=== PATIENT | female | born 1935 | race Hispanic/Latino ===

== ENCOUNTER 2017-02-12 05:05 | Inpatient (IN) | payer MEDICARE, OTHER ==
[2017-02-12 05:27] LABS: #Basophils 0.1 thou/uL (0.0-0.2); #Eosinphils 0.1 thou/uL (0.0-0.7); #Lymphocytes 2.2 thou/uL (1.20-3.40); #Monocytes 0.4 thou/uL (0.11-0.59); #Neutrophils 3.4 thou/uL (1.40-6.50); %Basophils 1.3 % (0.0-1.0); %Lymphocytes 35.4 % (21.0-51.0); %Monocytes 7.1 % (0.0-10.0); Hematocrit 39.2 % (36.0-47.0); Mean Platelet Volume 9.1 fL (7.4-10.4); Red Blood Cell (RBC) Count 3.87 mill/uL (4.20-5.40); White Blood Cell (WBC) Count 6.2 thou/uL (4.8-10.8)
[2017-02-12 05:36] LABS: PTT 31.8 SEC (22.9-36.1); Prothrombin Time 14.1 SEC (12.0-14.7)
[2017-02-12 05:47] LABS: ALT (SGPT) 20 U/L (8-55); AST (SGOT) 30 U/L (5-34); Alkaline Phosphatase 148 U/L (40-150); Anion Gap 10 mmol/L (10-20); BUN (Urea Nitrogen) 12 mg/dL (9.8-20.1); Calc. Creatinine Clearance 0 mL/min (70-130); Calcium 8.4 mg/dL (7.8-10.44); Carbon Dioxide 26 mmol/L (23-31); Chloride 106 mmol/L (98-107); Estimated GFR-MDRD 77; Globulin 3.1 g/dL (2.4-3.5); Protein, Total 6.2 g/dL (6.0-8.3)
[2017-02-12 05:49] LABS: Troponin I 0.048 ng/mL (< 0.028)
[2017-02-12] MEDS ORDERED: Fentanyl 100 MCG/2 ML VIAL ONE (06:40)
[2017-02-12] MEDS ORDERED: Heparin 1000 UNIT/NS 500ML(OR) 1,000 ML ONE (07:00)
[2017-02-12] MEDS ORDERED: Heparin 10,000 UNITS/1 ML VIAL ONE (07:01)
[2017-02-12] MEDS ORDERED: Phenylephrine 10 MG/NS 250 ML 0 ML ONE (07:14)
[2017-02-12] MEDS ORDERED: SUGAMMADEX SODIUM 500 MG/5 ML VIAL ONE (08:36)
--- NOTE | 2017-02-12 09:20 | CT ---
PRELIMINARY REPORT/[facility]/EMERGENCY AFTER HOURS PROCEDURE: EXAM: CT Angiography Head With Intravenous Contrast CLINICAL HISTORY: 81 years old, female; Signs and symptoms; Weakness; Patient HX: Stroke alert. . . . Last seen normal 0300, right sided facial droop and weakness, pt is not responding. Unable to obtain further history TECHNIQUE: Axial computed tomographic angiography images of the head with intravenous contrast using CT angiogra phy protocol. Coronal and sagittal reformatted images were created and reviewed. CONTRAST: 95 mL of isovue 370 administered intravenously. COMPARISON: No relevant prior studies available. FINDINGS: Right internal carotid artery: No significant stenosis. No dissection or occlusion. Right anterior cerebral artery: No occlusion or significant stenosis. No aneurysm. Right middle cerebral artery: No occlusion or significant stenosis. No aneurysm. Right posterior cerebral artery: No occlusion or significant stenosis. No aneurysm. Right vertebral artery: No significant stenosis. No dissection or occlusion. Left internal carotid artery: No significant stenosis. No dissection or occlusion. Left anterior cerebral artery: No occlusion or significant stenosis. No aneurysm. Left middle cerebral artery: Occlusion of the distal left M1 segment with filling defect suggestive o f clot. Occlusion of a posterior M3 branch in the sylvian fissure with distal constitution and overal l diminished opacification of distal left MCA branches compared to the contralateral side. Left posterior cerebral artery: No occlusion or significant stenosis. No aneurysm. Left vertebral artery: No significant stenosis. No dissection or occlusion. Basilar artery: No occlusion or significant stenosis. No aneurysm. Brain: Diminished enhancement along the left insula and posterior frontal and anterior parietal regio ns. IMPRESSION: Occlusion of the left M1 segment distally with diminished enhancement in the MCA distribution as abov e. EXAM: CT Angiography Neck With Intravenous Contrast CLINICAL HISTORY: 81 years old, female; Signs and symptoms; Weakness; Patient HX: Stroke alert. . . . Last seen normal 0300, right sided facial droop and weakness, pt is not responding. Unable to obtain further history TECHNIQUE: Axial computed tomographic angiography images of the neck with intravenous contrast using CT angiogra phy protocol. MIP reconstructed images were created and reviewed. CONTRAST: 95 mL of isovue 370 administered intravenously. COMPARISON: CT Brain WO Con 2017-02-12 05:09 FINDINGS: VASCULATURE: Right common carotid artery: No significant stenosis. No dissection or occlusion. Right internal carotid artery: Mild plaque at the right carotid bulb and proximal internal carotid ar tanmay without significant stenosis. Right external carotid artery: Unremarkable. No occlusion. Right vertebral artery: No significant stenosis. No dissection or occlusion. Left common carotid artery: No significant stenosis. No dissection or occlusion. Left internal carotid artery: Mild partially calcified atherosclerotic plaque at the left carotid bul b and proximal internal carotid artery without significant stenosis. Left external carotid artery: Unremarkable. No occlusion. Left vertebral artery: Left vertebral artery arising from aorta. Otherwise unremarkable. NECK: Bones/joints: No acute fracture. No dislocation. Soft tissues: Unremarkable. Lung apices: Moderate bilateral pleural effusions. Mild interlobular septal thickening. IMPRESSION: No acute findings. THIS REPORT CONTAINS FINDINGS THAT MAY BE CRITICAL TO PATIENT CARE. The findings were verbally commun icated via telephone conference with Avinash Blanco at 5:49 AM DISTRICT LOSS PREVENTION MANAGER on 02/12/2017. The findings were acknowledged and understood. Thank you for allowing us to participate in the care of your patient. Dictated and Authenticated by: Benny Lee MD 02/12/2017 5:50 AM Central Time ([place]) FINAL REPORT CT ANGIOGRAM OF THE NECK WITH CONTRAST CT ANGIOGRAM OF THE HEAD WITH CONTRAST: DATE: 02/12/17. HISTORY: An 81-year-old female with acute stroke: right-sided facial droop and weakness. Unresponsive. Dr. Powers reported the left MCA clot by telephone to Dr. Chalino Torres of neuro-interventional/neurosurger y, at 8:54 a.m. on 02/12/17. Dr. Powers also notified Juliane Alcaraz of the CCU of the same finding at les s than 1 minute before that. TECHNIQUE: IV contrast bolus injection. Arterial phase scan performed from aortopulmonic window through vertex of head. Coronal and sagittal 3D MIP reconstructions. FINDINGS: There is abrupt truncation and occlusion at the M2 segment of the left middle cerebral artery. There are fewer peripheral branches of left middle cerebral artery compared to the right. There is heavil y calcified atherosclerotic plaque throughout the bilateral parotid siphons, more specifically the ca vernous carotids, and the degree of stenoses there is difficult to assess. There is probably at leas t moderate, and possibly severe stenosis there bilaterally. No evidence of high-grade stenosis or occlusion in the rest of the anterior circulation of [place], or the posterior circulation. Bilateral cervical vertebral arteries are codominant. The lef t vertebral artery arises from the aortic arch, which is an anatomical variant. No high-grade stenos is identified involving the bilateral vertebral arteries, common carotid arteries, cervical internal carotid arteries, brachiocephalic artery, or right subclavian artery. Proximal left subclavian arter y is not stenotic. Mid portion is obscured by beam-hardening artifact from adjacent dense contrast b olus in the left subclavian vein. There are bilateral pleural effusions that reach the apices. No a neurysm or dissection of aortic arch. Agree with [facility] preliminary report IMPRESSION: 1. Occlusion at M2 segment of left middle cerebral artery. 2. Heavily calcified plaque in the bilateral carotid siphons (more specifically in the cavernous car otids). The degree of stenosis there is uncertain. 3. Bilateral pleural effusions. CODE QA POS: [facility]
--- NOTE | 2017-02-12 09:21 | PRG ---
DATE OF SERVICE: 02/12/2017 Ms. Henry is an 81-year-old female that was reportedly in her normal state of health at 3:30 this morning. A couple of hours later close to 5:30, she was found to have neglecting hemiparesis as well as dysarthria. She was brought to the [facility] where she underwent a noncontrast head CT which was negative for hemorrhage. She subsequently had a CT angiogram of the head and neck which reveale d a distal M1 clot on the left side with a filling defect. She is on antiplatelets and therefore not a good TPA candidate. I did feel upon review of her images that she may benefit from mechanical thr ombectomy and have activated teams to begin the process. She at the time of my arrival had no family present. We will move forward as this is an emergency.
[2017-02-12] MEDS: Sodium Chloride 0.9% 1,000 ML IV SCH ×2 (09:31→15:11)
--- NOTE | 2017-02-12 09:38 | CCL ---
ATTEMPTED ANGIOGRAM AND ATTEMPTED MECHANICAL THROMBECTOMY: DATE: 02/12/17. SURGEON: Dr. Torres. BRASS CLEANER: None. INDICATION: Ischemic stroke with thrombus. ANESTHESIA: General. PROCEDURE IN DETAIL: The patient was brought to the angiogram suite and placed on the table in a supine position. She was placed under general anesthesia. Both groins were prepped and draped in the usual sterile fashion. 1% lidocaine was used to inject the right groin. A 5 [place] micropuncture set was used to gain acce ss to right common femoral artery. Using the Seldinger technique, that was exchanged for an 8 [place] sheath. An 8 [place] concentric guide catheter was passed initially over a 130 cm diagnostic cathete r which was initially passed over a [employer] wire. The wire was placed within the left common carotid artery. There is a very sharp kink at the takeoff and I could not get a diagnostic catheter or a gu chelsey into the common carotid artery. We then exchanged the diagnostic catheter for a Isaac II dieudonne ter which was formed and placed within the left common carotid artery. We then exchanged over an exc hange length wire the guide catheter which again would not pass into the left common carotid artery. We then used several different wires and diagnostic catheters in an attempt to get into the left com mon carotid artery, but were unsuccessful in accessing that artery secondary to extreme tortuosity. All catheters were then removed. Hemostasis was maintained in manual compression. The procedure cam e to an end without complication. POS: [facility]
[2017-02-12] MEDS: Aspirin 325 mg Enteric Coated Tablet PO SCH ×2 (09:54→09:57)
--- NOTE | 2017-02-12 10:09 | CT ---
PRELIMINARY REPORT/[facility]/EMERGENCY AFTER HOURS PROCEDURE: Addendum created by Benny Lee MD on 02/12/2017 5:35 AM Central Time ([place]) Some questionabl e hypoattenuation noted in the left posterior frontal region. The findings were verbally communicated via telephone conference with Avinash Blanco at 5:34 AM MOUNTAIN GUIDE on 02/12/2017. Initial Report created on 02/12/2017 5:23 AM Central Time ([place]) EXAM: CT Head Without Intravenous Contrast CLINICAL HISTORY: 81 years old, female; Signs and symptoms; Weakness, extremity and weakness, facial; Right; Patient HX : Stroke alert. . . . Last seen normal 0300, right sided facial droop and weakness, pt is not respond ing. Unable to obtain further history TECHNIQUE: Axial computed tomography images of the head/brain without intravenous contrast. COMPARISON: No relevant prior studies available. FINDINGS: Brain: Atrophy and [id number] periventricular-deep white matter hypodensities compatible with c hronic microvascular ischemic change. Small area of left parietal hypodensity with volume loss sugges tive of remote ischemic event. Similar appearing hypodensity in the medial right occipital lobe. No hemorrhage. Ventricles: Normal. Bones/joints: Unremarkable. No acute fracture. Soft tissues: Normal. Sinuses: Unremarkable. Mastoid air cells: Unremarkable. No mastoid effusion. IMPRESSION: No evidence of hemorrhage or definite acute findings. Thank you for allowing us to participate in the care of your patient. Dictated and Authenticated by: Benny Lee MD 02/12/2017 5:23 AM Central Time ([place]) FINAL REPORT EMERGENT AFTER HOURS CT OF BRAIN PERFORMED WITHOUT CONTRAST ENHANCEMENT: HISTORY: Stroke symptoms with right-sided facial droop and weakness. COMPARISON: A 11/13/13 study. FINDINGS: There is generalized ventricular and sulcal prominence. There is decreased attenuation to the perive ntricular white matter consistent with some chronic white matter change. There is some encephalomala vika change involving the left parietal region and right occipital lobe. These changes do not appear acute. No hemorrhage or mass effect. IMPRESSION: 1. No acute intracranial abnormalities. 2. This report is in agreement with the temporary report issued by [facility]. POS: [facility]
[2017-02-12] MEDS ORDERED: Aspirin 300 MG Suppository PR SCH (12:00)
[2017-02-12] MEDS ORDERED: ISOVUE-370 76%-LOCM 1 ML ONE (13:35)
[2017-02-12] MEDS ORDERED: Glycopyrrolate 0.2 MG/ML 5 ML SYRINGE ONE (15:35)
[2017-02-12] MEDS ORDERED: Propofol 200 MG/20 ML VIAL ONE (15:35)
[2017-02-12] MEDS ORDERED: Iopamidol 370 76% 100 ML VIAL ONE (15:35)
--- NOTE | 2017-02-12 22:00 | CON ---
DATE OF CONSULTATION: 02/12/2017 REASON FOR CONSULTATION: Medical management of the patient with acute CVA who has diabetes and other medical problems. HISTORY OF PRESENT ILLNESS: The patient is an 81-year-old female who lives at the [facility] in [place] who developed acute CVA in left middle cerebral artery distribution. She was emerge ntly taken to the clinical lab technologist by Dr. Torres who tried to revascularize the place where the clot was found on CT angiogram which was M2 segment of the left middle cerebral artery and this was unsuccessful at tempt and the patient was admitted to the hospital for further medical management since mechanically he was not able to manage the problem and some Physician Hospitalist group was consulted to manage he r medical problems. PAST MEDICAL HISTORY: Positive for: 1. Coronary artery disease of [place] coronary arteries of [place] heart. 2. Hypertensive heart disease without heart failure. 3. Dyslipidemia. 4. Chronic kidney disease stage II. 5. Age-related osteoporosis. 6. Generalized muscle weakness. 7. Diabetes mellitus type 2. 8. Hypothyroidism. 9. Neuropathy. 10. Only one kidney. PAST SURGICAL HISTORY: 1. Appendectomy. 2. Hysterectomy. 3. Spinal surgery. SOCIAL HISTORY: She lives at [facility]. She is an ex-tobacco user. She quit 10 years ago. She denies any alcohol intake or use any illicit drugs. FAMILY HISTORY: Not obtainable. REVIEW OF SYSTEMS: Unobtainable because of patient's mental status, she is in deep, and difficult to arouse. CURRENT MEDICATIONS: Alprazolam 0.25 mg 3 times a day, aspirin 81 mg once a day, Biotin 2500 mcg onc e a day, calcium carbonate with vitamin D3 one tablet daily, carvedilol 12.5 mg unknown frequency, ch olecalciferol 1000 units once a day, clopidogrel 75 mg once a day, cranberry capsule 400 mg daily, vi tamin B12 of 1000 mcg daily, docusate 240 mg twice a day, gabapentin 100 mg twice a day, glimepiride 4 mg every morning, Humalog for sliding scale, hydrocodone by titrate/acetaminophen 5/325 mg 1 tablet daily, insulin NPH 18 units subcutaneously at bedtime and 28 units of a.c., lisinopril 5 mg daily, l ovastatin 10 mg at bedtime, metformin 500 mg every morning, pravastatin 20 mg at bedtime, ropinirole 0.25 mg q.p.m., tramadol 50 mg tablets, unknown frequency. PHYSICAL EXAMINATION: VITAL SIGNS: Her blood pressure is 153/75, pulse is 77, respirations 19, pulse oximetry 97% on room air. HEENT: Her head is atraumatic, normocephalic. She is in a coma, but she is arousable with some stim charles. Her eyes are deviated to the left. Pupils about 3 mm wide, similar bilaterally. Sclerae nonic teric. Conjunctivae pinkish. Oral mucosa is somewhat dry. NECK: Supple. LUNGS: A few crackles at both bases. Heart and diminished breath sounds at both bases. HEART: S1, S2 normal. No S3, no S4, no any murmur. ABDOMEN: Soft, nontender, nondistended, bowel sounds are present, no organomegaly. EXTREMITIES: No clubbing, cyanosis or edema. NEUROLOGIC: She tries to follow, but fall short very quickly. She has some facial droop on the righ t side and right-sided hemiplegia which is 4/5. Babinski sign is not positive on both sides. SKIN: No rash or erythema. LABORATORY AND X-RAY FINDINGS: White count of 6.2, hemoglobin 12.6, hematocrit 39.2, platelet count is 185,000, MCV is 101. Coagulation is INR of 1.1, PT 14.1, PTT 31.8. Chemistry: Normal electrolytes, glucose 75, troponin I 0.048. CK-MB 3.8, creatinine kinase 81, gluc ose 101, albumin 3.1. IMAGES: CT of the brain personally reviewed by me showed no acute intracranial abnormalities. There is some encephalomalacia in the left parietal region and the right occipital lobe and some decreased attenuation to the periventricular white matter consistent with some chronic white matter changes. LABORATORY DATA: CT angiography showed on neck no acute findings and the [place] angiograph y which showed abrupt truncation and occlusion at the M2 segment of the left middle cerebral artery. Also, there is a heavily calcified atherosclerotic plaque throughout the bilateral carotid siphons m ore specifically the cavernous carotids, no evidence of high grade stenosis or occlusion in the rest of the anterior circulation of [place] or the posterior circulation. IMPRESSION: 1. Acute cerebrovascular attack in the left middle cerebral artery distribution, status post unsucce ssful mechanical revascularization. 2. Hypertension. 3. Diabetes mellitus type 2. 4. Coronary artery disease, chronic, stable. 5. Hypothyroidism. 6. Neuropathy. 7. Only one kidney from the time of . PLAN: Agree with the current management. The patient received aspirin 325 mg rectally. She was on clopidogrel prior to this hospitalization. The case was discussed with Dr. Torres who recommends to u se either aspirin or clopidogrel, not both of them. Since she was very comatose and she failed the s wallow studies, we will keep her on the rectal aspirin for now and if she wakes up tomorrow and she i s able to swallow, we will switch her to clopidogrel 75 mg daily, and continue. For now, she is gett ing IV normal saline at 100 mL per hour for IV hydration. We are going to do Accu-Cheks a.c. and at bedtime and cover with just a mild sliding scale. We are not going to introduce her on long-acting i nsulin here because her glycemia is ranging in normal levels. Also, she is on the statin at the nurs ing home, I would like to switch her to stronger statin since she is on, I believe, pravastatin, and we will have to put her on most likely a statin. Tomorrow, she will have revaluation by the sp eech therapy and we are going to send her to stroke unit today and we are going to keep her on SCDs f or deep venous thrombosis prophylaxis. She will be on Pepcid 20 mg IV push q.12 h. for PUD prophylax is and I am going to hold all her senior care medications for now and will make decision about the n ext step tomorrow if she wakes up and able to swallow anything orally without any harm. Thank you very much for the consultation, we will follow with you.
[2017-02-13] MEDS: Sodium Chloride 0.9% 1,000 ML IV SCH ×2 (09:53→20:25)
[2017-02-13] MEDS: Aspirin 300 MG Suppository PR SCH (09:53)
[2017-02-13] MEDS ORDERED: Dextrose 5% in Water 1,000 ML IV PRN (13:21)
[2017-02-13] MEDS ORDERED: Dextrose 50% Abboject 50 ML SYRINGE SLOW IVP PRN (13:21)
--- NOTE | 2017-02-13 14:23 | PRG ---
DATE OF SERVICE: 02/13/2017 SUBJECTIVE: The patient is seen and examined at bedside and there is the patient's daughter at the [facility] too. She has multiple questions and all questions have answered to her satisfaction. OBJECTIVE: VITAL SIGNS: Blood pressure is 147/65, pulse is 83, temperature is 98.6, respiratory rate is 18, O2 saturation is 96% on room air. GENERAL: She does not follow me. Although, when she was asked to open her mouth, she did, but that is all she followed. She has significant congestion in her throat, but she seems to be holding her s ecretions pretty good. She is not able to talk. She does make some noises, but she is much more lata ke today than yesterday. Yesterday, she was very comatose. Today, she is sitting up and able to loo k around. HEENT: Head is atraumatic, normocephalic. Pupils responding to light properly. NECK: Supple. LUNGS: Clear. HEART: S1, S2 normal, no S3, no S4. ABDOMEN: Soft, nontender. Bowel sounds are present. No organomegaly. EXTREMITIES: No clubbing, cyanosis or edema. NEUROLOGIC: As mentioned above, she is aphasic. There is significant amount of apraxia. Her motor function, which is mild right-sided weakness in the right upper extremity and some in the right lower extremity. SKIN: No rash or erythema. LABORATORY DATA: Showed glycemia ranges from 73-231. IMPRESSION: 1. Acute cerebrovascular in the left middle cerebral artery distribution, status post unsuccessful m echanical revascularization. 2. Hypertension. 3. Diabetes mellitus type 2. 4. Coronary artery disease, chronic, stable. 5. Hypothyroidism. 6. Neuropathy. 7. Only one kidney from the time of . PLAN: She failed swallow studies by speech therapist. She is getting 325 mg of aspirin rectally. I was hoping that we can give her clopidogrel and switch her to clopidogrel today, but her swallowing is not improved much since yesterday. Since she improved significantly, we are hoping that tomorrow evaluation of her swallowing will be a good and it will let me to start her on some food and some ora l medications. We are going to continue IV fluids and we will continue PT, OT, and speech therapy an d further recommendation will depend on her improvement.
[2017-02-13] MEDS: Insulin Regular 300 UNITS/3 ML VIAL SC PRN (17:32)
[2017-02-14 07:09] LABS: #Lymphocytes 1.3 thou/uL (1.20-3.40); #Monocytes 0.5 thou/uL (0.11-0.59); #Neutrophils 6.6 thou/uL (1.40-6.50); %Basophils 0.2 % (0.0-1.0); %Eosinophils 0.2 % (0.0-10.0); %Lymphocytes 15.3 % (21.0-51.0); %Monocytes 5.7 % (0.0-10.0); Hematocrit 38.1 % (36.0-47.0); Mean Platelet Volume 9.2 fL (7.4-10.4); Red Blood Cell (RBC) Count 3.79 mill/uL (4.20-5.40); White Blood Cell (WBC) Count 8.4 thou/uL (4.8-10.8)
[2017-02-14 07:23] LABS: Calcium 8.3 mg/dL (7.8-10.44); Chloride 111 mmol/L (98-107)
[2017-02-14 07:31] LABS: BUN (Urea Nitrogen) 30 mg/dL (9.8-20.1); Calc. Creatinine Clearance 45 mL/min (70-130); Carbon Dioxide 17 mmol/L (23-31); Estimated GFR-MDRD 56
[2017-02-14 07:36] LABS: Anion Gap 16 mmol/L (10-20)
--- NOTE | 2017-02-14 08:21 | ULT ---
CAROTID ARTERIAL DOPPLER ULTRASOUND: DATE: 02/14/17 COMPARISON: None. HISTORY: CVA. TECHNIQUE: Multiplanar Reynaga scale sonographic imaging of the arterial structures of the neck obtained with color flow and spectral analysis. FINDINGS: Antegrade blood flow and normal arterial waveforms are documented within the carotid and vertebral sy stem bilaterally. VESSEL PSV (cm/sec) EDV (cm/sec) Right CCA 73 10 Right ICA 74 9 Right ECA 73 6 Left CCA 67 12 Left ICA 51 10 Left ECA 71 4 ICA/CCA ratio is 1.0 on the right and 0.8 on the left. IMPRESSION: No hemodynamically significant stenosis on the basis of sonographic velocity criteria. Check tech note. POS: [facility]
[2017-02-14] MEDS: Sodium Chloride 0.9% 1,000 ML IV SCH ×2 (09:21→21:11)
[2017-02-14] MEDS: Aspirin 300 MG Suppository PR SCH (09:22)
--- NOTE | 2017-02-14 11:18 | PDOC.PN ---
- Subjective Encounter Start Date: 02/14/17 Encounter Start Time: 11:00 Subjective: f/u L MCA distribution CVA with R hemiparesis, aphasia and dysphagia. -: Still unable to take po and awaiting BMET evaluation today. Receiving -: ASA 300mg WI. - Objective MAR Reviewed: Yes Vital Signs & Weight: Vital Signs (12 hours) Temp Pulse Resp BP Pulse Ox 02/14/17 07:56 98.9 F 89 20 176/84 H 94 L 02/14/17 04:00 98.3 F 89 16 140/76 96 02/14/17 01:06 98.6 F 85 18 173/77 H 97 Weight Admit Weight 215 lb 2.738 oz Weight 135 lb 6.4 oz Most Recent Monitor Data Heart Rate from ECG 90 NIBP 157/72 NIBP BP-Mean 97 Respiration from ECG 16 SpO2 99 I&O: 02/13/17 02/14/17 02/15/17 06:59 06:59 06:59 Intake Total 634 1688 Output Total 1290 450 Balance -656 1238 Result Diagrams: 02/14/17 07:01 02/14/17 07:01 Additional Labs: Accuchecks 02/14/17 02/14/17 02/13/17 10:39 06:02 21:52 POC Glucose 310 H 268 H 281 H 02/13/17 02/13/17 17:01 11:48 POC Glucose 273 H 231 H Radiology Reviewed by me: Yes (CT brain - no acute process) EKG Reviewed by me: Yes (Tele - SR) Phys Exam - Physical Examination Constitutional: NAD sleeping, arouses to name briefly HEENT: PERRLA, oral pharynx no lesions Neck: no JVD, supple Respiratory: no wheezing, clear to auscultation bilateral Cardiovascular: RRR Gastrointestinal: soft, non-tender, no distention, positive bowel sounds Musculoskeletal: no edema, pulses present R hemiparesis, dysphagia, expressive aphasia Skin: normal turgor, cap refill <2 seconds Dx/Plan (1) Cerebrovascular accident (CVA) due to thrombosis of left middle cerebral artery Code(s): I63.312 - CEREBRAL INFRC DUE TO THOMBOS OF LEFT MIDDLE CEREBRAL ARTERY Status: Acute Comment: Medical mgmt after unsuccessful mechanical thrombectomy, ASA 300mg WI daily, Statin when taking po (2) Acute right hemiparesis Code(s): G81.91 - HEMIPLEGIA, UNSPECIFIED AFFECTING RIGHT DOMINANT SIDE Status : Acute Comment: PT/OT (3) Expressive aphasia Code(s): R47.01 - APHASIA Status: Acute Comment: BMET for re-evaluation of swallowing function, NPO currently (4) Dysphagia Code(s): R13.10 - DYSPHAGIA, UNSPECIFIED Status: Acute Comment: See above - Plan plan discussed w/ family, PT/OT, social security benefits interviewer, speech therapy, out of bed/ ambulate, DVT proph w/SCDs Continue supportive care -: NPO pending BMET re-eval -: May consider Palliative care for goals of care -: ASA 300mg WI daily -: 2D echo pending * SNF vs NH on d/c
[2017-02-14] MEDS: Insulin Regular 300 UNITS/3 ML VIAL SC PRN ×3 (12:02→21:13)
[2017-02-14] MEDS: hydrALAZINE 20 MG/ML VIAL SLOW IVP PRN (14:41)
--- NOTE | 2017-02-14 23:49 | CON ---
DATE OF CONSULTATION: 02/14/2017 REFERRING PROVIDER: Ronny Torres M.D. REASON FOR CONSULTATION: Right-sided weakness and aphasia. HISTORY OF PRESENT ILLNESS: Ms. Henry is a pleasant 81-year-old female who has been conc erned for evaluation of right-sided weakness and aphasia. History is obtained from patient's thomase r who was present at bedside. Daughter reports that the patient has been in shelter due to rece nt rib fracture. She was noted by shelter staff to have sudden onset of right-sided weakness an d aphasia which prompted them to bring her to the [facility]. On arrival here, she wa s recommended for stroke alert. CT angiogram of the head and neck was done, which showed left MCA th rombus. Dr. Torres had tried to revascularize, however it was unsuccessful due to the tortuosity of t he carotid artery system. The patient's daughter reports that there has not been any improvement in her strength in the right side. She also continues to be nonverbal. PAST MEDICAL HISTORY: Significant for hypertension, dyslipidemia, coronary artery disease, chronic k idney disease stage II, osteoporosis, diabetes, hypothyroidism, neuropathy. PAST SURGICAL HISTORY: Significant for appendectomy, hysterectomy, and spinal surgery. SOCIAL HISTORY: She is a shelter resident. She is an ex-tobacco user. She does not drink alco hol or use illicit drugs. FAMILY HISTORY: Noncontributory. CURRENT MEDICATIONS: Please review MAR. ALLERGIES: No known drug allergies. REVIEW OF SYSTEMS: Unable to obtain. PHYSICAL EXAMINATION: VITAL SIGNS: Blood pressure 163/78, pulse of 95, temperature of 98.4, respirations 16, O2 sat 95% on room air. GENERAL: Well-developed, well-nourished female in no apparent distress. RESPIRATORY: Clear to auscultation bilaterally. CARDIOVASCULAR: Regular rate and rhythm. NEUROLOGIC: Mental status: The patient is awake and alert, but she is nonverbal and not able to fol low any commands. Speech and language: She is mute and has global aphasia. Cranial nerves: Pupils are 3 mm and reactive. Visual davidson are full to threat. She is able to track people in the room. She has right facial droop noted. Motor exam showed flaccid right upper and right lower extremity. She withdraws to pain on the right lower extremity with no withdrawal to pain noted on the right upp er extremity. LABORATORY DATA: I reviewed, which included CBC, coag panel, CMP, lipid profile, CK-MB, CPK, troponi n, which is significant for glucose of 277, total cholesterol 163, LDL of 67, HDL of 76, and triglyce rides of 100, otherwise unremarkable. IMAGING STUDIES: CT head without contrast was reviewed which showed no acute intracranial abnormalit y. CT angiogram showed acute thrombus in the left middle cerebral artery and heavily calcified plaqu e in bilateral carotid siphons. There are bilateral pleural effusions as well. IMPRESSION: 1. Acute left middle cerebral artery distribution ischemic infarct. 2. Acute left M2 thrombus, status post unsuccessful thrombectomy. 3. Right hemiparesis, due to #1. 4. Global aphasia, due to #1. Ms. Henry is a pleasant 81-year-old female presented with the acute onset of right hemipa resis and aphasia. She was found to have left middle cerebral artery M2 thrombus. There was an atte mpt to have mechanical thrombectomy done; however, it was unsuccessful. At this time, I would recomm end continuing her on aspirin 324 mg suppository. I would also recommend continuing PT, OT, speech t herapy. I have discussed with daughter at length regarding PEG tube placement if she does not recove r her swallowing. I have also discussed with her prognosis and future treatment plan. Continue supp ortive care. Thank you for your consultation.
[2017-02-15] MEDS: Insulin Regular 300 UNITS/3 ML VIAL SC PRN ×4 (06:34→22:12)
[2017-02-15] MEDS: Aspirin 300 MG Suppository PR SCH (08:56)
[2017-02-15] MEDS: Sodium Chloride 0.9% 1,000 ML IV SCH (08:56)
[2017-02-15 10:31] VITALS: BMI 23.4
--- NOTE | 2017-02-15 12:09 | RAD ---
MODIFIED BARIUM SWALLOW WITH SPEECH THERAPIST: 02/15/2017 HISTORY: An 81-year-old female with dysphagia following a cerebral infarction (I69.391). TECHNIQUE: Initial administration of thin liquid barium, followed by nectar, honey, and puree. FINDINGS: There is significant delay in oral intake, and very little tongue motion. There is premature free sp illage of all of the given consistencies into the vallecula and piriform sinuses, both immediately an d in multiple delayed phases, as the large amount of oral residue periodically spills into the pharyn x. There is very slow, delayed swallow reflex. The patient swallowed only when verbally prompted to do so. There is slow elevation of the larynx during swallowing, and there is only partial clearance of the residue by the swallowing. No penetration or aspiration is visualized. IMPRESSION: Profound oral and pharyngeal dysphagia. POS: LESLEE
[2017-02-15] MEDS: hydrALAZINE 20 MG/ML VIAL SLOW IVP PRN (12:32)
--- NOTE | 2017-02-15 14:26 | PDOC.PN ---
- Subjective Encounter Start Date: 02/15/17 Encounter Start Time: 14:25 Subjective: f/u L MCA M2 thrombus CVA with [facility]. ASA -: 300mg NE and aphasia persists. Failed MBS today with plans for PEG. - Objective MAR Reviewed: Yes Vital Signs & Weight: Vital Signs (12 hours) Temp Pulse Resp BP BP Pulse Ox 02/15/17 12:32 75 186/90 H 02/15/17 11:20 97.5 F L 76 20 176/81 H 92 L 02/15/17 08:00 98.2 F 82 24 H 98 02/15/17 07:15 98.2 F 82 24 H 184/86 H 98 02/15/17 04:20 97.4 F L 77 20 169/79 H 97 Weight Admit Weight 215 lb 2.738 oz Weight 132 lb 6.4 oz Most Recent Monitor Data Heart Rate from ECG 90 NIBP 157/72 NIBP BP-Mean 97 Respiration from ECG 16 SpO2 99 I&O: 02/14/17 02/15/17 02/16/17 06:59 06:59 06:59 Intake Total 1688 1648 Output Total 450 1 Balance 1238 1647 Result Diagrams: 02/14/17 07:01 02/14/17 07:01 Additional Labs: Accuchecks 02/15/17 02/15/17 02/14/17 11:21 06:23 21:13 POC Glucose 221 H 220 H 237 H 02/14/17 16:49 POC Glucose 277 H Radiology Reviewed by me: Yes (MBS - + dysphagia) EKG Reviewed by me: Yes (Tele - SR) Phys Exam - Physical Examination Constitutional: NAD sleepy Neck: no JVD, supple few scattered coarse sounds Respiratory: no wheezing Cardiovascular: RRR Gastrointestinal: soft, non-tender, no distention, positive bowel sounds Musculoskeletal: no edema, pulses present R hemiparesis, expressive aphasia, dysphagia Skin: normal turgor, cap refill <2 seconds Dx/Plan (1) Cerebrovascular accident (CVA) due to thrombosis of left middle cerebral artery Code(s): I63.312 - CEREBRAL INFRC DUE TO THOMBOS OF LEFT MIDDLE CEREBRAL ARTERY Status: Acute Comment: Medical mgmt after unsuccessful mechanical thrombectomy, ASA 300mg NE daily, Statin when taking po (2) Acute right hemiparesis Code(s): G81.91 - HEMIPLEGIA, UNSPECIFIED AFFECTING RIGHT DOMINANT SIDE Status : Acute Comment: PT/OT (3) Expressive aphasia Code(s): R47.01 - APHASIA Status: Acute Comment: MACHINE STACKER for re-evaluation of swallowing function, NPO currently (4) Dysphagia Code(s): R13.10 - DYSPHAGIA, UNSPECIFIED Status: Acute Comment: See above, plan for PEG placement (5) Cardiomyopathy Code(s): I42.9 - CARDIOMYOPATHY, UNSPECIFIED Status: Chronic Qualifiers: Cardiomyopathy type: unspecified Qualified Code(s): I42.9 - Cardiomyopathy , unspecified Comment: EF 20-25%, ? etiology but has hx of CABG and DM, consider Cardiology evaluation - Plan plan discussed w/ family, PT/OT, health care social worker, speech therapy, DVT proph w/ SCDs Continue supportive mgmt -: ASA 300mg NE daily -: GI consult for PEG placement -: CM for rehab options -: NPO * Consider Cardiology evaluation
[2017-02-16] MEDS: Sodium Chloride 0.9% 1,000 ML IV SCH ×3 (00:35→15:12)
--- NOTE | 2017-02-16 01:43 | CON ---
DATE OF CONSULTATION: 02/15/2017 REASON FOR CONSULTATION: Request for PEG tube placement. HISTORY OF PRESENT ILLNESS: Ms. Henry is an 81-year-old female who came in on 02/12/2017 with an acute CVA. This was felt to be embolic stroke. She had acute onset of right-sided weakness and apha ascencion. There was a left MCA thrombus, and she was taken by Neurosurgery to interventional procedures t o try to remove the thrombus; however, this was not able to be excised secondary to the tortuosity of the carotid system. She has been evaluated by Neurology now and has had an acute left middle cerebr al artery ischemic infarct. She has got aphasia, she says high at times, right hemiparesis and she h as done miserably poorly on a swallow study with attempts to get her to take p.o. that has been unsuc cessful. It was felt that she has a high risk for aspiration by Speech Pathology and physical therap y. I have been asked to see her with regard to PEG tube placement. The family did elect to proceed with this as it does not seem that her swallowing can recover in the next week or two. PAST MEDICAL HISTORY: Notable for diabetes, coronary artery disease, high blood pressure, chronic ki dney disease, osteoporosis, hypothyroidism, neuropathy. PAST SURGICAL HISTORY: Includes nephrectomy, hysterectomy, spinal surgery, appendectomy. SOCIAL HISTORY: She lives at [facility]. She used to smoke, she does not now. She does not drink or use drugs. FAMILY HISTORY: Noncontributory. REVIEW OF SYSTEMS: Unable to be obtained, as the patient is aphasic. HOME MEDICATIONS: Alprazolam, aspirin, biotin, calcium carbonate, carvedilol, Calciferol, Plavix, cr anberry capsule, vitamin B12, docusate, gabapentin, glimepiride, Humalog sliding scale, hydrocodone p.r.n., insulin, lisinopril, metformin, pravastatin, ropinirole, tramadol. PRESENT MEDICATIONS: Aspirin, D5W, p.r.n. Apresoline, Humulin sliding scale, normal saline at 80 an hour. PHYSICAL EXAMINATION: GENERAL: Patient is alert and oriented and she seems to gaze around, but has a right-sided neglect. VITAL SIGNS: Temperature is 98, pulse is 87, blood pressure 174/78. CHEST: Lungs are clear. There is a well-healed scar in the chest. ABDOMEN: Soft, nontender. There is no palpable hepatosplenomegaly. LABORATORY DATA: White count 8.4, hemoglobin 12.1, platelet count 159. INR was 1.1 on the 2nd. Tereza mistries on 02/14 were normal except for BUN and creatinine of 30 and 0.95. ASSESSMENT: Cerebrovascular accident with oropharyngeal dysphagia. She has done poorly on a modifie d swallow and it was felt to be at high risk for aspiration. She is not really talking much at all. The risks, benefits, and possible complications of PEG tube placement including perforation, bleedin g, reaction to medication, aspiration and injury to internal organs were discussed with patient and wilman bazan. They wished to proceed. We will proceed with this tomorrow afternoon.
[2017-02-16] MEDS: Insulin Regular 300 UNITS/3 ML VIAL SC PRN (06:02)
[2017-02-16] MEDS: Aspirin 300 MG Suppository PR SCH (08:42)
[2017-02-16] MEDS: hydrALAZINE 20 MG/ML VIAL SLOW IVP PRN ×2 (08:43→16:21)
[2017-02-16] MEDS ORDERED: CEFAZOLIN/Water 2 GM/20 ML SYRINGE ONE (13:27)
[2017-02-16] MEDS ORDERED: Ondansetron HCl/PF 4 MG/2 ML Vial IVP PRN (13:49)
--- NOTE | 2017-02-16 14:41 | OP ---
DATE OF PROCEDURE: 02/16/2017 SURGEON: Leno Ward M.D. PREOPERATIVE DIAGNOSES: History of cerebrovascular accident and oropharyngeal dysphagia, she failed modified barium swallow and speech pathology evaluation in the past couple of days. She remains apha sic. Family requested PEG tube placement. POSTOPERATIVE DIAGNOSES: 1. Duodenitis bulb of duodenum without bleeding small erosions, white based. 2. Otherwise, normal esophagogastroduodenoscopy. 3. PEG tube placed by Ponsky pull technique. ANESTHESIA: TIVA. PROCEDURE IN DETAIL: After the patient was informed of the risks, benefits, possible complications o f endoscopy including perforation, bleeding, reactions to medication and aspiration. The family gave informed consent as the patient could not. The patient brought to the endoscopy suite after she was sedated in gradual fashion given 2 grams of Ancef prophylactically. The endoscope was advanced thro ugh the esophagus, stomach and second and third portion of duodenum and slowly removed. There was go od visualization of mucosa. The esophagus and stomach were normal. The duodenal bulb was notable fo r white-based erosions consistent with mild duodenitis, but the duodenum distally which was normal. The scope was retroflexed normal. Adequate place for PEG tube placement was identified by transillum ination and PEG tube placed by Ponsky pull technique. The access was lost in the stomach and we had to start over with the same incision though. After placement, second look confirmed good placement. The scope was removed. The patient tolerated the procedure well with no complications.
[2017-02-16] MEDS ORDERED: Lidocaine 1% PF 5 ML VIAL ONE (16:12)
--- NOTE | 2017-02-16 16:50 | PDOC.PN ---
- Subjective Encounter Start Date: 02/16/17 Encounter Start Time: 16:35 Subjective: f/u for L MCA M2 thrombus with unsuccessful mech thrombectomy on ASA -: 300mg OH daily. S/P PEG placement 02/16/17. - Objective MAR Reviewed: Yes Vital Signs & Weight: Vital Signs (12 hours) Temp Pulse Pulse Pulse Resp BP BP 02/16/17 16:21 87 179/78 H 02/16/17 15:10 98.3 F 87 20 02/16/17 14:40 98.2 F 79 20 02/16/17 11:19 98.3 F 74 18 02/16/17 08:48 80 78 164/77 H 02/16/17 08:43 81 186/91 H 02/16/17 08:15 98.3 F 81 16 02/16/17 07:15 98.3 F 81 16 BP BP Pulse Ox 02/16/17 16:21 02/16/17 15:10 179/78 H 96 02/16/17 14:40 154/83 H 97 02/16/17 11:19 152/70 H 97 02/16/17 08:48 168/79 H 02/16/17 08:43 02/16/17 08:15 98 02/16/17 07:15 186/91 H 98 Weight Admit Weight 215 lb 2.738 oz Weight 129 lb 14.4 oz Most Recent Monitor Data Heart Rate from ECG 90 NIBP 157/72 NIBP BP-Mean 97 Respiration from ECG 16 SpO2 99 I&O: 02/15/17 02/16/17 02/17/17 06:59 06:59 06:59 Intake Total 1648 2073 Output Total 1 Balance 1647 2073 Result Diagrams: 02/14/17 07:01 02/14/17 07:01 Additional Labs: Accuchecks 02/16/17 02/16/17 02/15/17 10:38 05:43 21:08 POC Glucose 169 H 159 H 183 H EKG Reviewed by me: Yes (Tele - SR) Phys Exam - Physical Examination Constitutional: NAD HEENT: PERRLA, oral pharynx no lesions Neck: no JVD, supple Respiratory: no wheezing, clear to auscultation bilateral Cardiovascular: RRR PEG site CDI Gastrointestinal: soft, non-tender, no distention, positive bowel sounds Musculoskeletal: no edema, pulses present R hemiparesis, expressive aphasia Skin: normal turgor, cap refill <2 seconds Dx/Plan (1) Cerebrovascular accident (CVA) due to thrombosis of left middle cerebral artery Code(s): I63.312 - CEREBRAL INFRC DUE TO THOMBOS OF LEFT MIDDLE CEREBRAL ARTERY Status: Acute Comment: Medical mgmt after unsuccessful mechanical thrombectomy, ASA 325mg PT daily, start Lipitor 20mg PT daily (2) Acute right hemiparesis Code(s): G81.91 - HEMIPLEGIA, UNSPECIFIED AFFECTING RIGHT DOMINANT SIDE Status : Acute Comment: PT/OT (3) Expressive aphasia Code(s): R47.01 - APHASIA Status: Acute Comment: SCAFFOLD BUILDER for re-evaluation of swallowing function, NPO currently (4) Dysphagia Code(s): R13.10 - DYSPHAGIA, UNSPECIFIED Status: Acute Comment: See above, s /p PEG placement 02/16/17, start TF's per GI (5) Cardiomyopathy Code(s): I42.9 - CARDIOMYOPATHY, UNSPECIFIED Status: Chronic Qualifiers: Cardiomyopathy type: unspecified Qualified Code(s): I42.9 - Cardiomyopathy , unspecified Comment: EF 20-25%, ? etiology but has hx of CABG and DM, consider Cardiology evaluation - Plan plan discussed w/ family Saline lock IVF -: Convert ASA 325mg PT daily -: Lipitor 20mg PT daily -: Protonix 40mg PT daily -: Start TF's Diabetic formula 1.2 goal rate 45ml/h * Resume Levemir 10u sc HS * SNF in 24h-48h
[2017-02-16] MEDS ORDERED: Atorvastatin Calcium 20 MG TAB PER TUBE SCH (21:00)
[2017-02-16] MEDS ORDERED: Insulin NPH/Reg Insulin Hm 300 UNITS/3 ML VIAL SC SCH (21:00)
[2017-02-17] MEDS: traMADol HCl 50 MG TAB PER TUBE PRN ×2 (00:40→06:03)
[2017-02-17] MEDS: Insulin Regular 300 UNITS/3 ML VIAL SC PRN ×3 (06:00→17:49)
[2017-02-17] MEDS ORDERED: Pantoprazole 40 MG GRANULES PACKET PER TUBE SCH (09:00)
[2017-02-17] MEDS ORDERED: Carvedilol 6.25 MG TAB PER TUBE SCH (09:00)
[2017-02-17] MEDS ORDERED: Aspirin 325 MG TAB PO SCH (09:00)
[2017-02-17] MEDS ORDERED: Pantoprazole 40 MG GRANULES PACKET PO SCH (09:00)
[2017-02-17] MEDS ORDERED: Aspirin 325 mg Enteric Coated Tablet PO SCH (09:00)
[2017-02-17] MEDS ORDERED: Lisinopril 5 MG TAB PER TUBE SCH (09:00)
--- NOTE | 2017-02-17 12:06 | DIS ---
DATE OF ADMISSION: 02/12/2017 DATE OF DISCHARGE: 02/17/2017 DISCHARGE DIAGNOSES: 1. Acute left middle cerebral artery cerebrovascular accident with M2 segment thrombus with unsucces sful mechanical thrombectomy. 2. Acute right hemiparesis secondary to #1. 3. Expressive aphasia secondary to #1. 4. Dysphagia secondary to #1. 5. Status post PEG tube placement 02/16/2017. 6. Ischemic cardiomyopathy with ejection fraction of 25-30%, compensated. 7. Diabetes mellitus type 2, insulin requiring. 8. Duodenitis, mild. 9. Hypertension, labile. 11. Dyslipidemia. 12. Coronary artery disease, chronic and stable. CONSULTATIONS: Dr. Torres with Neurosurgical Service. Dr. Keita with Neurology Service. Dr. Ed pina ith GI Service. PERTINENT LAB AND X-RAY FINDINGS: Basic metabolic profile within normal limits. Total cholesterol 1 63, triglycerides 100, HDL 76, LDL 67. CBC within normal limits. CT of the brain without contrast d ated 02/12/2017 showed chronic ischemic white matter changes. Encephalomalacia involving the left pa rietal region and right occipital lobe. No acute process identified. CT angiogram of the [place] dated 02/12/2017 showed occlusion at the M2 segment of the left middle cerebral artery. A 2D transthoracic echocardiogram dated 02/14/2017 showed ejection fraction of 20-25%. Mild left atrial e nlargement. Moderate mitral regurgitation. Severe tricuspid valve regurgitation. Moderate pulmonic regurgitation. Carotid Doppler study dated 02/14/2017 showed no hemodynamically significant stenosi s. Modified barium swallow study dated 02/15/2017 showed profound oral and pharyngeal dysphagia. HOSPITAL COURSE: Patient was initially admitted to the Stroke Unit after presenting with acute onset of aphasia, right-sided hemiparesis, treated emergently with attempt at mechanical thrombectomy by N eurosurgical Service. Mechanical thrombectomy was unsuccessful and the patient was managed medically on the Stroke Unit. The patient continued on aspirin 300 mg per rectum daily due to n.p.o. status a nd concern for dysphagia due to acute CVA. The patient underwent general stroke protocol including m ultiple imaging studies and evaluation by the Neurology Service. Current recommendations are for med ical management and aggressive physical, occupational, and speech therapy. The patient was evaluated serially for safety of swallowing; however, deemed inappropriate for oral intake after failing a mod ified barium swallow study. The patient underwent subsequent PEG tube placement on 02/16/2017 and in itiated on Glucerna 1.2 with a goal rate of 45 mL per hour nutritional formula. The patient was able to tolerate tube feeds at current goal rate and overall remained clinically stable. Due to patient' s severe deficits and ongoing need for skilled care, the patient was deemed an appropriate candidate for inpatient rehabilitation. The patient will transfer to [facility]. Alin jeffery will transfer to [facility] on 02/17/2017. DISCHARGE MEDICATIONS: 1. Aspirin 325 mg per PEG tube daily. 2. Lipitor 20 mg per PEG tube daily. 3. Xanax 0.25 mg per PEG tube t.i.d. p.r.n. anxiety. 4. Biotin 5,000 mcg per PEG tube daily. 5. Calcium carbonate 1 tablet per PEG tube daily. 6. Coreg 12.5 mg per PEG tube daily. 7. Vitamin D3 1000 units per PEG tube daily. 8. Plavix 75 mg per PEG tube daily. 9. Cranberry extract 400 mg per PEG tube daily. 10. Vitamin B12 1000 mcg p.o. daily. 11. Docusate 240 mg per PEG tube b.i.d. p.r.n. 12. Gabapentin 100 mg per PEG tube b.i.d. 13. Glimepiride 4 mg per PEG tube q.a.m. 14. NPH insulin 28 units a.c. and 18 units subcu at bedtime. 15. Lisinopril 5 mg per PEG tube daily. 16. Glucophage 500 mg p.o. q.a.m. 17. Protonix 40 mg per PEG tube daily. 18. Requip 0.25 mg per PEG tube at bedtime. FOLLOWUP: The patient will follow up with her primary care provider, Dr. Manan Bradley after dischar ge from [facility]. CONDITION ON DISCHARGE: Guarded. ACTIVITY: Ad gabby. DIET: Tube feeds with Glucerna 1.2 at 45 mL per hour. Aspiration precautions. CODE STATUS: Full. DISPOSITION: Discharged to [facility] 02/17/2017. Total time preparing and coordinating discharge was 36 minutes.
[2017-02-17 14:55] VITALS: BP 116/61; TEMP 97.2
--- NOTE | 2017-02-19 15:35 | EKG ---
Test Reason : STROKESS Blood Pressure : / mmHG Vent. Rate : 079 BPM Atrial Rate : 079 BPM P-R Int : 186 ms QRS Dur : 136 ms QT Int : 452 ms P-R-T Axes : 019 102 162 degrees QTc Int : 518 ms Normal sinus rhythm Rightward axis Non-specific intra-ventricular conduction block Cannot rule out Anteroseptal infarct , age undetermined Abnormal ECG Confirmed by REMI ACKERMAN D.O. ([id number]), health editor KHADRA HAAS ([id number]) on 02/19/2017 3:35:14 PM Referred By: Confirmed By:REMI ACKERMAN D.O.
== END 2017-02-17 18:03 | DRG 64 ==
LOC: ERS 05:05 → CCL 06:23 → CCU 08:59 → 2SE 19:08
PROVIDERS: ADMIT Neurological Surgery; ATTEND Internal Medicine
PROC: B3141ZZ Fluoroscopy of Left Common Carotid Artery using Low Osmolar Contrast (ICD-10-PCS; principal; 2017-02-12)
PROC: 03JY3ZZ Inspection of Upper Artery, Percutaneous Approach (ICD-10-PCS; 2017-02-12)
PROC: 0DH63UZ Insertion of Feeding Device into Stomach, Percutaneous Approach (ICD-10-PCS; 2017-02-16)
DX: I63.312 Cerebral infarction due to thrombosis of left middle cerebral artery (principal); R40.20 Unspecified coma; G81.91 Hemiplegia, unspecified affecting right dominant side; R13.12 Dysphagia, oropharyngeal phase; I42.9 Cardiomyopathy, unspecified; R47.01 Aphasia; Q60.0 Renal agenesis, unilateral; G62.9 Polyneuropathy, unspecified; I13.10 Hypertensive heart and chronic kidney disease without heart failure, with stage 1 through stage 4 chronic kidney disease, or unspecified chronic kidney disease; K29.80 Duodenitis without bleeding; I25.10 Atherosclerotic heart disease of native coronary artery without angina pectoris; M19.90 Unspecified osteoarthritis, unspecified site; E78.5 Hyperlipidemia, unspecified; H40.9 Unspecified glaucoma; E03.9 Hypothyroidism, unspecified; N18.2 Chronic kidney disease, stage 2 (mild)
CPT/HCPCS: 36215; 36415; 36416; 70450; 70496; 70498; 74230; 80048; 80053; 80061; 82553; 84484; 85025; 85610; 85730; 90471; 90732; 93005; 93306; 93880; 94760; A4216; C1769; C1887; G0009; G8978-GP-CM; G8979-GP-CK; G8987-GO-CM; G8988-GO-CK; G8996-GN-CL; G8996-GN-CM; G8996-GN-CN; G8997-GN-CK; G8997-GN-CM; G8997-GN-CN; J0360; J1644; J1815; J2001; J2704; J3010

== ENCOUNTER 2017-02-22 13:39 | Inpatient (IN) | payer MEDICARE ==
[2017-02-22 14:20] LABS: Mean Platelet Volume 10.7 fL (7.4-10.4); Red Blood Cell (RBC) Count 3.73 mill/uL (4.20-5.40); White Blood Cell (WBC) Count 21.1 thou/uL (4.8-10.8)
[2017-02-22 14:31] LABS: ALT (SGPT) 8 U/L (8-55); AST (SGOT) 22 U/L (5-34); Alkaline Phosphatase 125 U/L (40-150); Anion Gap 11 mmol/L (10-20); BUN (Urea Nitrogen) 35 mg/dL (9.8-20.1); Bilirubin, Total 0.8 mg/dL (0.2-1.2); Calc. Creatinine Clearance 0 mL/min (70-130); Calcium 8.4 mg/dL (7.8-10.44); Carbon Dioxide 28 mmol/L (23-31); Chloride 107 mmol/L (98-107); Estimated GFR-MDRD 66; Globulin 3.4 g/dL (2.4-3.5); Protein, Total 5.7 g/dL (6.0-8.3)
[2017-02-22 14:35] LABS: Troponin I 0.061 ng/mL (< 0.028)
[2017-02-22 14:44] LABS: Band 33 % (5-11); Neutrophil 62 % (42-75)
[2017-02-22] MEDS ORDERED: Piperacillin/Tazobactam 3.375 GM in Sodium Chloride 0.9% 100 ML IVPB SCH (16:45)
[2017-02-22 17:26] LABS: Troponin I 0.055 ng/mL (< 0.028)
[2017-02-22] MEDS ORDERED: Ondansetron HCl/PF 4 MG/2 ML Vial IVP PRN (20:17)
[2017-02-22] MEDS ORDERED: Dextrose 5% in Water 1,000 ML IV PRN (20:17)
[2017-02-22] MEDS ORDERED: Dextrose 50% Abboject 50 ML SYRINGE SLOW IVP PRN (20:17)
[2017-02-22] MEDS ORDERED: HumaLOG 300 UNITS/3 ML VIAL SC PRN (20:17)
[2017-02-22 20:23] LABS: Troponin I 0.056 ng/mL (< 0.028)
[2017-02-22] MEDS ORDERED: Atorvastatin Calcium 20 MG TAB PER TUBE SCH (21:00)
[2017-02-22] MEDS ORDERED: Insulin NPH/Reg Insulin Hm 300 UNITS/3 ML VIAL SC SCH (21:00)
[2017-02-22] MEDS ORDERED: cefTRIAXone\\ROCEPHIN 2 GM in Sodium Chloride 0.9% 100 ML IVPB SCH (21:00)
--- NOTE | 2017-02-22 21:12 | HP ---
PRIMARY CARE PROVIDER: Dr. Bradley, referred to the [facility] by [facility]. HISTORY OF PRESENT ILLNESS: Patient discharged to 02/17/2017 from our facility to [facility]. Now on 02/22/2017, she is referred back. She has had increasing shortness of breath, congestion in her c hest, swelling all over, and had a fever of 101 today. No sweats or chills. It is pertinent that ron hobbs is aphasic with a right hemiplegia and is also Swedish speaking. History was obtained from the son , who is at bedside. PAST MEDICAL HISTORY: 1. Pertinent for a recent thrombotic CVA with right flaccid hemiparesis and expressive aphasia. 2. Dysphagia secondary to cerebrovascular accident. 3. PEG placement on 02/16/2017. 4. Ischemic cardiomyopathy with a 20% to 25% EF. 6. Diabetes mellitus type 2, insulin requiring. 7. Hypertension. 8. Dyslipidemia. 9. Coronary artery disease. CURRENT MEDICATIONS: At this time, aspirin 325 per PEG daily, Lipitor 20 mg per PEG, Xanax 0.25 per PEG t.i.d. p.r.n., Coreg 12.5 mg per PEG daily, Plavix 75 mg a day, gabapentin 100 mg twice a day, Am aryl 4 mg a day, NPH insulin 70/30, 28 in the morning and 18 in p.m., lisinopril 5 mg a day per PEG, Glucophage 500 mg a day per PEG, Protonix 40 mg a day per PEG, and Requip 0.25 mg a day per PEG. ALLERGIES: No known drug allergies. SOCIAL HISTORY: , lives with son. No tobacco, alcohol. DNR, discussed with son. PAST SURGICAL HISTORY: Coronary artery bypass graft, appendectomy, hysterectomy. FAMILY HISTORY: Diabetes, hypertension in multiple members of family. REVIEW OF SYSTEMS: Totally unobtainable due to patient's aphasia which is apparently both expressive and receptive. PHYSICAL EXAMINATION: GENERAL: Patient is in no acute distress. VITAL SIGNS: Blood pressure 155/78, pulse 75, respirations 22, temperature 98.9, room air sat 97. HEAD, EARS, NOSE, AND THROAT: Reveal pupils equal and round. Extraocular movements grossly intact. Sclerae white. Tympanic membranes clear. Nose clear. Oral mucous membranes are damp. NECK: No jugular venous distention, adenopathy or thyromegaly. CHEST: Clear to percussion on the right, dull to percussion on the left base, loud rhonchi across he r neck in all lung davidson. HEART: Regular rate and rhythm. No murmurs or gallops were appreciated. ABDOMEN: Soft, bowel sounds are normal. There is no hepatosplenomegaly, no mass, no rebound. EXTREMITIES: Reveal 2+ anasarca in her legs and arms. No cyanosis or clubbing. SKIN: Warm and dry. PULSES: Carotid, radial, femoral, and dorsalis pedis pulses are palpable and grossly symmetric. HEME/LYMPH: Reveals no tender or swollen lymph nodes in axilla, inguinal, or cervical area. NEUROLOGICAL: Cranial nerves II through XII are intact. Dense right flaccid hemiplegia and expressi ve receptive aphasia. LABORATORY AND X-RAY FINDINGS: Chest x-ray: Left pleural effusion with possible pneumonia, pulmonar y vascular congestion, reviewed by me. EKG: Regular sinus rhythm, intraventricular conduction defec t, left axis deviation reviewed by me. LABORATORY DATA: Comp metabolic profile: BUN 35, glucose 284, otherwise normal. BNP 3380, troponin 0.06. White count 21.1, hemoglobin 12.0, platelet count 144,000. Neutrophil count 62% bands, bands 33%. ADMITTING DIAGNOSES: 1. Acute on chronic congestive heart failure, systolic with cardiomyopathy of 20% to 25%. 2. Probable left lower lung pneumonia. Considering her fever, elevated white count. 3. Recent stroke with dense right hemiplegia and aphasia. 4. Anasarca. 5. Diabetes mellitus type 2. 6. Labile hypertension. 7. Coronary artery disease. 8. Dyslipidemia. PLAN: 1. Place in the hospital on telemetry, DNR is on the chart. 2. Diuresis with Lasix 40 mg IV q.12 hours and monitor I&O. 3. Continue RUDDY and Coreg. 4. Blood cultures, start antibiotics with Rocephin 2 grams a day and Zithromax 500 mg a day. 5. Accu-Cheks sliding scale. 6. Selected home medicines. DISCUSSION: This patient has obviously significantly decompensated since her discharge, I have discu ssed the fact that the current status could be complicated by acute cardiopulmonary arrest. Son is a ojeda, and he and his sister have discussed it and are comfortable with DNR and placement on the floor .
[2017-02-22] MEDS ORDERED: Azithromycin 500 MG in Sodium Chloride 0.9% 250 ML 250 ML IVPB SCH (22:00)
[2017-02-22] MEDS: Insulin NPH/Reg Insulin Hm 300 UNITS/3 ML VIAL SC SCH (23:11)
[2017-02-23] MEDS: Furosemide 40 MG/4 ML VIAL SLOW IVP SCH ×2 (05:15→14:45)
[2017-02-23 06:28] LABS: Band 28 % (5-11); Hematocrit 36.9 % (36.0-47.0); Mean Platelet Volume 10.4 fL (7.4-10.4); Neutrophil 69 % (42-75); Red Blood Cell (RBC) Count 3.64 mill/uL (4.20-5.40)
[2017-02-23] MEDS: Insulin NPH/Reg Insulin Hm 300 UNITS/3 ML VIAL SC SCH ×3 (08:12→16:41)
[2017-02-23] MEDS: Acetaminophen 325 MG TAB PO PRN ×2 (08:18→12:39)
[2017-02-23] MEDS ORDERED: Aspirin 325 MG TAB PO SCH (09:00)
[2017-02-23] MEDS ORDERED: FLU VACC TS2017-18 (>65YR) 0.5 ML SYRINGE IM ONE (09:00)
[2017-02-23] MEDS ORDERED: Carvedilol 6.25 MG TAB PER TUBE SCH (09:00)
[2017-02-23] MEDS ORDERED: Enoxaparin Sodium 40 MG/0.4 ML SYRINGE SC SCH (09:00)
[2017-02-23] MEDS ORDERED: Lisinopril 5 MG TAB PER TUBE SCH (09:00)
[2017-02-23] MEDS ORDERED: Clopidogrel Bisulfate 75 MG TAB PO SCH (09:00)
--- NOTE | 2017-02-23 09:05 | PDOC.PN ---
- Subjective Encounter Start Date: 02/23/17 Encounter Start Time: 08:59 -: non-verbal - Objective Resuscitation Status: Resuscitation Status DNR:Do Not Resuscitate MAR Reviewed: Yes Vital Signs & Weight: Vital Signs (12 hours) Temp Pulse Resp BP Pulse Ox 02/23/17 08:18 75 02/23/17 04:00 97.8 F 75 20 116/82 90 L Weight Weight 154 lb 14.4 oz I&O: 02/22/17 02/23/17 02/24/17 06:59 06:59 06:59 Intake Total 590 Balance 590 Result Diagrams: 02/23/17 05:23 02/22/17 13:54 Additional Labs: Accuchecks 02/23/17 02/22/17 05:44 20:24 POC Glucose 259 H 364 H Phys Exam - Physical Examination Constitutional: NAD Neck: no JVD diffuse rhonchi Cardiovascular: RRR, no significant murmur Gastrointestinal: soft, positive bowel sounds Musculoskeletal: edema present Dx/Plan (1) Acute on chronic systolic (congestive) heart failure Code(s): I50.23 - ACUTE ON CHRONIC SYSTOLIC (CONGESTIVE) HEART FAILURE Status : Acute (2) PNA (pneumonia) Code(s): J18.9 - PNEUMONIA, UNSPECIFIED ORGANISM Status: Acute Qualifiers: Pneumonia type: due to Pneumococcus (3) Anasarca Code(s): R60.1 - GENERALIZED EDEMA Status: Acute (4) Diabetes mellitus type 2, uncontrolled Status: Acute Qualifiers: Diabetes mellitus complication status: without complication Diabetes mellitus halfway insulin use: without halfway use Qualified Code(s): E11.65 - Type 2 diabetes mellitus with hyperglycemia (5) Dysphagia Code(s): R13.10 - DYSPHAGIA, UNSPECIFIED Status: Acute Qualifiers: Dysphagia type: unspecified Qualified Code(s): R13.10 - Dysphagia, unspecified Comment: See above, s/p PEG placement 02/16/17, start TF's per GI (6) Expressive aphasia Code(s): R47.01 - APHASIA Status: Acute Comment: 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 etiology but has hx of CABG and DM, consider Cardiology evaluation - Plan plan discussed w/ family cont iv antibx, diuresis, acccu/ss -: palliative care, hospice eval -: move to medical bed * .
[2017-02-23 11:45] VITALS: BMI 31.2
--- NOTE | 2017-02-23 17:07 | PDOC.EVN ---
Event Note - Event Note Event Note: in accordance with family request, will DC all suppotrive measures and use comfort measures only
[2017-02-23] MEDS ORDERED: Morphine 4 MG/ML VIAL SLOW IVP PRN (17:09)
[2017-02-23 19:29] VITALS: BP 118/58; TEMP 97.8
--- NOTE | 2017-02-23 21:01 | DIS ---
DATE OF ADMISSION: 02/22/2017 DATE OF DISCHARGE: 02/23/2017 DISCHARGE DISPOSITION: Discharged to [facility]. 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 DISCHARGE MEDICATIONS: None. CODE STATUS: DNR. PENDING AT THE TIME OF DISCHARGE: Nothing. HOSPITAL COURSE: The patient admitted with acute onset of shortness of breath, congestion in her [address], fever, swelling and she was evaluated. Chest x-ray revealed left pleural effusion with possible pneumonia, pulmonary vascular congestion. LABORATORY DATA: BUN 35, glucose 285. BNP 3380. White count of 21,000. Acute on chronic congestive heart failure, left lower lobe pneumonia, etc. She is placed on IV antib iotics, fluids. Shortly after the patient admitted, the family asked in addition to be DNR with they wanted a palliative care hospice consult. Today, the family has refused all laboratory, medications , nutrition, etc., requested only some comfort. She was given morphine sulfate for pain. Kashif I am called at 6:15 [address] said [address] [facility] was ready to take her as inpatient. She is alona ross discharged to [facility]. CODE STATUS: Comfort care. CONSULTATIONS: None. PROCEDURES: None.
== END 2017-02-23 20:47 | disposition hospice, inpatient (51) | DRG 291 ==
LOC: ERS 13:39 → 2NO 16:08 → ONC 02-23 13:07
PROVIDERS: ADMIT Internal Medicine; ATTEND Internal Medicine
DX: I11.0 Hypertensive heart disease with heart failure (principal); J18.9 Pneumonia, unspecified organism; I66.02 Occlusion and stenosis of left middle cerebral artery; J90 Pleural effusion, not elsewhere classified; I69.351 Hemiplegia and hemiparesis following cerebral infarction affecting right dominant side; E11.65 Type 2 diabetes mellitus with hyperglycemia; I69.320 Aphasia following cerebral infarction; I50.23 Acute on chronic systolic (congestive) heart failure; Z66 Do not resuscitate; R60.1 Generalized edema; I25.10 Atherosclerotic heart disease of native coronary artery without angina pectoris; E78.5 Hyperlipidemia, unspecified; R13.10 Dysphagia, unspecified; Z95.1 Presence of aortocoronary bypass graft; Z90.710 Acquired absence of both cervix and uterus; Z87.891 Personal history of nicotine dependence; I25.5 Ischemic cardiomyopathy
CPT/HCPCS: 36415; 36416; 82553; 83880; 84484; 85025; 87040; 93005; 94760; 96365; 96366; 96367; J0456; J0696; J1650; J1940; J1956; J2270; J2543; J3370; J7050